=== PATIENT | male | born 1950 | race Caucasian/White ===

== ENCOUNTER 2019-02-27 10:19 | Inpatient (IN) | payer OTHER ==
[~2019-02-27] VITALS: Ht 180.3 cm; Wt 172.4 kg
[~2019-02-27 10:19] MED LIST: ACTOS15 MG PO; ACTOS30 MG PO; CYMBALTA30 MG PO; FUROSEMIDE PO; GLYBURIDE5 MG PO; LISINOPRIL2.5 MG PO; LOPRESSOR25 MG PO; NORCO 5-325 TA1 EACH PO; NOVOLIN N100 UNIT/1 INJ; PREDNISONE20 MG PO; VICODIN PO; XOPENEX0.63 MG/3 IH; [UNRECOGNIZED DRUG - CODE] PO; [UNRECOGNIZED DRUG - OTHER] INH
--- NOTE | 2019-02-27 11:00 | NUR ---
DR. MCCALL AT BEDSIDE AT THIS TIME FOR PT EVAL, NOTED TO HAVE PERIRECTAL ABCESS TO RT MEDIAL ASPECT OF THIGH, SITE IS MALODOROUS, NO PUS NOTED, BLEEDING NOTED TO SITE, TENDER TO TOUCH.
[2019-02-27] MEDS: CEFEPIME 2 GM/NS 0.9% 100 ML 100 ML IV SCH ×2 (11:05→22:13)
[2019-02-27] MEDS ORDERED: SODIUM CHLORIDE 0.9% 1000ML 1,000 ML IV STA (11:05)
[2019-02-27] MEDS ORDERED: VANCOMYCIN 1GM/NS 250 ML 250 ML IV ONE (11:45)
--- NOTE | 2019-02-27 12:35 | Diagnostic Imaging Report ---
EXAMINATION: CHEST SINGLE (PORTABLE) INDICATION: SOB. COMPARISON: Chest radiograph 03/05/2016. FINDINGS: TUBES and LINES: None. LUNGS: Lungs are well inflated. There are mild perihilar and interstitial opacities. Mild patchy bibasilar opacities. PLEURA: No pleural effusion or pneumothorax. HEART AND MEDIASTINUM: The cardiomediastinal silhouette is mildly enlarged, which may be accentuated by portable technique. BONES AND SOFT TISSUES: No acute osseous abnormality. UPPER ABDOMEN: No free air under the diaphragm. IMPRESSION: Mild pulmonary interstitial edema. Patchy opacities at the lung bases may represent atelectasis, alveolar edema, or pneumonia in the appropriate clinical setting. Signed by: Dr. Mandy Patton MD on 02/27/2019 12:31 PM
[2019-02-27 12:40] LABS: BASOPHILS % 0.5 % (0.0-1.0); EOSINOPHILS # (AUTO) 0.4 (0.0-0.4); EOSINOPHILS % 6.6 % (0.0-6.0); LYMPHOCYTES # (AUTO) 0.7 (1.0-3.2); MEAN CORPUSCULAR HEMOGLOBIN 27.3 pg (28-32); MEAN CORPUSCULAR VOLUME 90.9 fL (81-99); MONOCYTES # (AUTO) 0.6 (0.2-0.8); MONOCYTES % 10.2 % (4.4-11.3); NEUTROPHILS # (AUTO) 4.3 (2.1-6.9); NEUTROPHILS % 69.7 % (38.7-80.0); PLATELET COUNT 222 x10e3/uL (140-360); RED BLOOD COUNT 2.97 x10e6/uL (4.3-5.7); RED CELL DISTRIBUTION WIDTH 18.9 % (11.7-14.4)
[2019-02-27 12:44] LABS: HEMOGLOBIN 8.1 g/dL (14.0-18.0)
--- NOTE | 2019-02-27 12:45 | NUR ---
PUREWICK APPLIED TO PT AT THIS TIME FOR URINE COLLECTION.
[2019-02-27 12:53] LABS: INR 1.05; PROTHROMBIN TIME 14.2 seconds (11.9-14.5)
[2019-02-27 12:54] LABS: ALANINE AMINOTRANSFERASE 14 IU/L (0-55); ALBUMIN 3.1 g/dL (3.5-5.0); ALBUMIN/GLOBULIN RATIO 0.7 (0.8-2.0); ALKALINE PHOSPHATASE 127 IU/L (40-150); ANION GAP 13.1 mmol/L (8-16); BLOOD UREA NITROGEN 26 mg/dL (7-26); BUN/CREATININE RATIO 23 (6-25); CALCIUM 9.6 mg/dL (8.4-10.2); CARBON DIOXIDE 34 mmol/L (22-29); CHLORIDE 97 mmol/L (98-107); CREATINE KINASE 72 IU/L (30-200); CREATININE, SERUM 1.13 mg/dL (0.72-1.25); EST GLOMERULAR FILTRATION RATE > 60 ML/MIN (60-); GLUCOSE 75 mg/dL (74-118); PARTIAL THROMBOPLASTIN TIME 38.3 seconds (23.8-35.5); POTASSIUM 4.1 mmol/L (3.5-5.1); SODIUM 140 mmol/L (136-145)
[2019-02-27 12:59] LABS: CLARITY,URINE SL CLOUDY (CLEAR); COLOR,URINE YELLOW (YELLOW); URINE UROBILINOGEN 4 mg/dL (0.2 - 1)
[2019-02-27 13:00] LABS: BILIRUBIN,URINE NEGATIVE (NEGATIVE); KETONES,URINE NEGATIVE (NEGATIVE); LEUKOCYTE ESTERASE ,URINE NEGATIVE (NEGATIVE); NITRITE,URINE NEGATIVE (NEGATIVE); PROTEIN,URINE DIPSTICK NEGATIVE (NEGATIVE)
[2019-02-27 13:03] LABS: B-TYPE NATRIURETIC PEPTIDE2 474.6 pg/mL (0-100)
[2019-02-27 13:12] LABS: EPITHELIAL CELLS,URINE RARE /LPF
[2019-02-27] MEDS ORDERED: SODIUM CHLORIDE 0.9% 250ML 250 ML IV ONE (14:15)
[2019-02-27] MEDS ORDERED: FUROSEMIDE INJ 10 MG/ML 2 ML VIAL IV PRN (14:15)
[2019-02-27] MEDS ORDERED: ONDANSETRON HCL INJ 2MG/ML 2ML 2 MG/ML VIAL IV PRN (14:45)
[2019-02-27] MEDS ORDERED: DEXTROSE 50% SYRINGE 50 ML IV PRN ×2 (14:45→17:15)
--- OUTSIDE RECORDS SUMMARY | 2019-02-27 15:02 | XMS REPORT ---
Author Author [facility] Address Unknown Phone Unavailable Care Team Providers Care External Relations Director Name Role Phone Guillermina MCCALL Unavailable Unavailable Problems This patient has no known problems. Allergies, Adverse Reactions, Alerts This patient has no known allergies or adverse reactions. Medications This patient has no known medications. Results Test Description Test Time Test Comments Text Results Atomic Results Result Comments CHEST SINGLE (PORTABLE) 2019-02-27 12:27:00 [place] [id number] Patient Name: TAWANA ALEJANDRA MR #: [id number] : 1950 Age/Sex: 68/M Req #: [id number] Adm Physician: Ordered by: EMRE MCCALL MD Report #: [id number] Location: ER Room/Bed: Procedure: [id number] DX/CHEST SINGLE (PORTABLE) Exam Date: 02/27/19 Exam Time: 1145 REPORT STATUS: Signed EXAMINATION: CHEST SINGLE (PORTABLE) INDICATI ON: SOB. COMPARISON: Chest radiograph 03/05/2016. FINDINGS: TUBES and LINES: None. LUNGS: Lungs are well inflated. There are mild perihilar and interstitial opacities. Mild patchy bibasilar opacities. PLEURA: No pleural effusion or pneumothorax. HEART AND MEDIASTINUM: The cardiomediastinal silhouette is mildly enlarged, which may be accentuated by portable technique. BONES AND SOFT TISSUES: No acute osseous abnormality. UPPER ABDOMEN: No free air under the diaphragm. IMPRESSION: Mild pulmonary interstitial edema. Patchy opacities at the lung bases may represent atelectasis, alveolar edema, or pneumonia in the appropriate clinical setting. Signed by: Dr. Crystal Neil MD on 02/27/2019 12:31 PM Dictated By: CRYSTAL NEIL MD [id number] Transcribed By: HOLDEN on 02/27/19 1231 COPY TO: EMRE MCCALL MD
[2019-02-27] MEDS: INSULIN LISPRO 100 UNIT/1 ML 3ML VIAL SQ SCH ×2 (16:30→22:14)
[2019-02-27 17:14] VITALS: BP 158/70
[2019-02-27] MEDS ORDERED: MORPHINE SULFATE INJ 4 MG/ML INJ 1ML IV PRN (17:15)
[2019-02-27] MEDS ORDERED: HYDROCODONE/APAP 5MG-325MG TAB PO PRN (17:15)
[2019-02-27] MEDS ORDERED: ACETAMINOPHEN 325 MG TAB PO PRN (17:15)
[2019-02-27 17:27] VITALS: BP 158/70
--- NOTE | 2019-02-27 17:30 | NUR ---
REC'D PT FROM ER WITH NC RUNNING AT 4L/MIN VIA STRETCHER. NO S/S OF DISTRESS NOTED. BED IN LOWEST POSITION, SIDE RAILS UP X2, AND CALL IRBY WITHIN REACH.
[2019-02-27 17:40] VITALS: BP 158/70
[2019-02-27] MEDS ORDERED: METFORMIN HCL500 MG PO (18:09)
[2019-02-27] MEDS ORDERED: FUROSEMIDE40 MG PO (18:09)
[2019-02-27] MEDS ORDERED: GLIPIZIDE5 MG PO (18:11)
[2019-02-27] MEDS ORDERED: NAPROXEN250 MG PO (18:11)
[2019-02-27] MEDS ORDERED: PIOGLITAZONE45 MG PO (18:12)
--- NOTE | 2019-02-27 18:30 | NUR ---
PT ON NC RUNNING AT 4L/MIN. NO S/S OF DISTRESS. CALL IRBY WITHIN REACH, SIDE RAILS UP X2, AND BED IN LOWEST POSITION.
[2019-02-27 19:18] VITALS: BP 140/60
[2019-02-27 19:25] VITALS: BP 140/60
--- NOTE | 2019-02-27 19:25 | NUR ---
PT IS RESTING IN BED. NO RESPIRATORY DISTRESS NOTED. BED IN THE LOWEST POSITION, LOCKED, AND CALL LIGHT WITHIN REACH. WILL CONTINUE TO MONITOR.
[2019-02-27 19:31] LABS: BASOPHILS % 0.5 % (0.0-1.0); EOSINOPHILS # (AUTO) 0.4 (0.0-0.4); HEMATOCRIT 25.5 % (38.2-49.6); HEMOGLOBIN 7.7 g/dL (14.0-18.0); LYMPHOCYTES # (AUTO) 0.7 (1.0-3.2); LYMPHOCYTES % 11.6 % (18.0-39.1); MEAN CORPUSCULAR HEMOGLOBIN 28.1 pg (28-32); MEAN CORPUSCULAR HGB CONC 30.2 g/dL (31-35); MEAN CORPUSCULAR VOLUME 93.1 fL (81-99); MONOCYTES # (AUTO) 0.7 (0.2-0.8); MONOCYTES % 12.2 % (4.4-11.3); NEUTROPHILS % 67.8 % (38.7-80.0); PLATELET COUNT 148 x10e3/uL (140-360); RED BLOOD COUNT 2.74 x10e6/uL (4.3-5.7); RED CELL DISTRIBUTION WIDTH 19.1 % (11.7-14.4)
[2019-02-27 20:10] LABS: CREATINE KINASE MB 1.8 ng/mL (0-5.0)
--- NOTE | 2019-02-27 21:00 | NUR ---
PER PT HE CAN NOT TURN FOR ME TO ASSESS HIS BACK AND BOTTOM DUE TO HIM NOT BEING IN A BIG BOY BED. WILL CONTINUE TO MONITOR.
[2019-02-27] MEDS ORDERED: SODIUM CHLORIDE 0.9% 250ML 250 ML ONE (21:25)
[2019-02-27 21:32] LABS: BASOPHILS % 0.4 % (0.0-1.0); EOSINOPHILS # (AUTO) 0.5 (0.0-0.4); EOSINOPHILS % 7.7 % (0.0-6.0); HEMATOCRIT 25.4 % (38.2-49.6); HEMOGLOBIN 7.6 g/dL (14.0-18.0); LYMPHOCYTES # (AUTO) 0.8 (1.0-3.2); LYMPHOCYTES % 11.6 % (18.0-39.1); MEAN CORPUSCULAR HEMOGLOBIN 27.6 pg (28-32); MEAN CORPUSCULAR HGB CONC 29.9 g/dL (31-35); MEAN CORPUSCULAR VOLUME 92.4 fL (81-99); MONOCYTES # (AUTO) 0.8 (0.2-0.8); MONOCYTES % 12.2 % (4.4-11.3); NEUTROPHILS # (AUTO) 4.6 (2.1-6.9); NEUTROPHILS % 67.2 % (38.7-80.0); PLATELET COUNT 202 x10e3/uL (140-360); RED BLOOD COUNT 2.75 x10e6/uL (4.3-5.7)
--- NOTE | 2019-02-27 21:46 | NUR ---
SPOKE TO DR GEIGER IN REGARD TO PT Hgb. PT Hgb 7.6. PER DR GEIGER DO NOT GIVE BLOOD. HE WILL CHECK TO WHAT PT Hgb IS IN THE MORNING AND GO FROM THEIR. WILL CONTINUE MONITOR.
[2019-02-27] MEDS: VANCOMYCIN 1GM/NS 250 ML 250 ML IV SCH (22:49)
[2019-02-27 23:45] VITALS: BP 135/62
--- NOTE | 2019-02-27 23:49 | History and Physical ---
CHIEF COMPLAINT: Right thigh bleeding. HISTORY OF PRESENT ILLNESS: This is a 68-year-old male morbidly obese with significant lower extremity lymphedema, type 2 diabetes, depression, hypertension, who comes into the ED with complaints of a right thigh sudden-onset bleeding. The patient reports there was initially a small hemorrhagic bullae that suddenly burst last night at home and again had significant amount of bleeding. He decided to put some pressure on that wound on that hemorrhagic bullae, but the bleeding never stopped. He decided to come to [facility] for further evaluation and care. The patient was evaluated by the ER physician, more pressure was applied, but there is still significant amount of bleeding there. General Surgery was consulted and recommended just conservative treatment with pressure at this time. No need for any surgical intervention according to the ER physician. REVIEW OF SYSTEMS: Pertinent positive: Right thigh bleeding. Pertinent negatives: Denies any chest pain, palpitation, nausea, vomiting, diarrhea, dysuria, hematuria, frequency, urgency, lightheadedness, dizziness, abdominal pain, headaches, shortness of breath, cough, congestion, fever, or any other complaints. The rest of 14-point review of systems are reviewed with the patient and are negative. ALLERGIES: . HOME MEDICATIONS: He takes Cymbalta 30 mg daily, Seward 5 one tab every 6 hours as needed for pain, Xopenex 0.63 mg inhaler q.6 hours, lisinopril 2.5 mg p.o. b.i.d., metoprolol tartrate 25 mg p.o. b.i.d., NPH 30 units b.i.d., Actos 15 mg at bedtime, and prednisone 40 mg daily. PAST MEDICAL HISTORY: Morbid obesity, lower extremity lymphedema, type 2 diabetes, and hypertension. PAST SURGICAL HISTORY: Reports none. FAMILY HISTORY: Hypertension and diabetes. SOCIAL HISTORY: No drugs. No alcohol. Does not smoke. Good social support. PHYSICAL EXAMINATION: VITAL SIGNS: Temperature is 98.2, pulse 71, respiratory rate is 20, blood pressure 110/49, pulse ox 100% on 3 L nasal cannula. GENERAL: Not in acute distress. Alert and oriented x3. Cooperative on examination. HEENT: Head is normocephalic and atraumatic. Eyes; pupils are equal, round, and reactive to light bilaterally. Extraocular muscles are intact bilaterally. Throat, no evidence of erythema or exudates in the posterior pharynx. Has poor dentition. NECK: Supple. Good range of motion throughout. No evidence of erythema or exudate in the posterior pharynx. Has poor dentition. PULMONARY: Clear to auscultation bilaterally. No wheezing, rales, or rhonchi. No crackles appreciated. CARDIOVASCULAR: Positive S1, S2. No murmurs, rubs, or gallops appreciated. ABDOMEN: Soft, nondistended, nontender to palpation. Bowel sounds present. MUSCULOSKELETAL: Strength is 5/5 throughout. No evidence of any muscle deficits on examination. No weakness appreciated. The patient's right thigh area has significant amount of bleeding, currently packed by General Surgery. NEUROLOGICAL: Cranial nerves II through XII grossly intact. No evidence of any neurological deficits on exam. SKIN: Intact. Warm to touch. Good cap refill. PSYCHIATRIC: Normal affect and mood. EXTREMITIES: No edema. Good range of motion throughout. LAB FINDINGS: Show white count 6.1, hemoglobin 8.1, hematocrit is 27, and platelets of 222. Coagulation; PT 14, INR 1, PTT 38. Chemistry; sodium 140, potassium 4.1, chloride 97, bicarb 34, anion gap of 13, BUN is 26, creatinine 1.1, lactic acid is 11, which is normal. Calcium 9.6, magnesium 72. Troponin is 0.002, BNP 474, albumin 3.1. Urinalysis was negative. Microbiology, blood, and urine cultures are pending. IMAGING STUDIES: Chest x-ray shows some patchy opacity at the lung bases may represent atelectasis. Mild pulmonary edema. IMPRESSION: 1. Right thigh hemorrhagic bleeding, likely secondary to an underlying cyst that is continuous. 2. Type 2 diabetes. 3. Morbid obesity. 4. Lower extremity lymphedema. 5. Hypertension. 6. Cellulitis. PLAN: At this time, apply pressure as per recommendations by General Surgery. General Surgery was consulted. Hemoglobin is 8.1. We will get another hemoglobin level at 2100 hours and to further evaluate this. Put on insulin sliding scale, Accu-Cheks, A1c. IV cefepime and vancomycin for possible underlying cellulitis. Continue with pain control. Resume same home medications. SCDs for DVT prophylaxis. We will continue same plan of care and monitor closely. General Surgery was consulted. MD JENNYFER Thakkar/ZAHRAA /[id number]
--- NOTE | 2019-02-28 04:19 | NUR ---
PT REFUSE TO HAVE HIS 0400 VITAL TAKEN. PER PT HE DOES NOT WANT TO BE DISTURB. WILL CONTINUE TO MONITOR.
[2019-02-28 04:30] VITALS: BP 138/62
--- NOTE | 2019-02-28 07:28 | NUR ---
PATIENT SITTING UP IN BED TALKING ON THE PHONE, NO DISTRESS NOTED. O2 IN PLACE VIA N/C. LEGS RED, SWELLING, AND SCALY WITH SOME LEAKING WOUNDS; BRUISES AND SCRATCHES TO BOTH ARMS; WOUND TO RIGHT BUTTOCK COVERED WITH DRESSING, REDNESS TO PERINEAL AREA. BED IN LOWER POSITION, CALL LIGHT AT REACH.
[2019-02-28] MEDS: INSULIN LISPRO 100 UNIT/1 ML 3ML VIAL SQ SCH ×4 (07:30→21:00)
[2019-02-28 07:31] LABS: BASOPHILS % 0.3 % (0.0-1.0); EOSINOPHILS # (AUTO) 0.5 (0.0-0.4); EOSINOPHILS % 7.3 % (0.0-6.0); HEMOGLOBIN 7.8 g/dL (14.0-18.0); LYMPHOCYTES # (AUTO) 0.6 (1.0-3.2); LYMPHOCYTES % 8.8 % (18.0-39.1); MEAN CORPUSCULAR VOLUME 93.2 fL (81-99); MONOCYTES # (AUTO) 0.7 (0.2-0.8); MONOCYTES % 11.4 % (4.4-11.3); NEUTROPHILS # (AUTO) 4.5 (2.1-6.9); NEUTROPHILS % 71.4 % (38.7-80.0); PLATELET COUNT 192 x10e3/uL (140-360); RED BLOOD COUNT 2.79 x10e6/uL (4.3-5.7); RED CELL DISTRIBUTION WIDTH 18.8 % (11.7-14.4)
[2019-02-28 07:35] VITALS: BP 136/63
[2019-02-28 07:49] VITALS: BP 136/63
[2019-02-28 07:58] LABS: ALANINE AMINOTRANSFERASE 14 IU/L (0-55); ALBUMIN 2.8 g/dL (3.5-5.0); ALBUMIN/GLOBULIN RATIO 0.7 (0.8-2.0); ALKALINE PHOSPHATASE 116 IU/L (40-150); ANION GAP 12.6 mmol/L (8-16); CALCIUM 8.7 mg/dL (8.4-10.2); CARBON DIOXIDE 32 mmol/L (22-29); CHLORIDE 100 mmol/L (98-107); CREATININE, SERUM 1.05 mg/dL (0.72-1.25); EST GLOMERULAR FILTRATION RATE > 60 ML/MIN (60-); GLUCOSE 129 mg/dL (74-118); POTASSIUM 4.6 mmol/L (3.5-5.1); SODIUM 140 mmol/L (136-145)
[2019-02-28 08:05] LABS: CREATINE KINASE MB 1.9 ng/mL (0-5.0)
[2019-02-28 08:15] LABS: BLOOD UREA NITROGEN 22 mg/dL (7-26); BUN/CREATININE RATIO 22 (6-25)
[2019-02-28] MEDS: METOPROLOL TARTRATE 25 MG TAB PO SCH ×2 (09:00→17:34)
[2019-02-28] MEDS: CEFEPIME 2 GM/NS 0.9% 100 ML 100 ML IV SCH ×2 (09:27→21:00)
[2019-02-28] MEDS: VANCOMYCIN 1GM/NS 250 ML 250 ML IV SCH ×2 (11:02→23:00)
[2019-02-28 11:39] VITALS: BP 134/58
--- NOTE | 2019-02-28 11:44 | NUR ---
Nutrition Screen Note RD Recommendation for Physician: Continue diet as ordered Plan of Care: RD following, monitoring for adequacy and tolerance Nutrition reason for involvement: Nutrition Risk Trigger - MST Primary Diagnose(s): Anemia, cellulitis, varicose vein of leg Ht:71 in Wt:411.44lbs BMI:57.4 kg/m2 IBW:172lbs RD Assessment:(02/28/2019) Initial encounter with patient. Pt has done well losing wt with lifestyle changes and exercise. Pt states that he has cut fat, sugar and portion sizes down. Pt denies any difficulty chewing or swallowing. Pt denies N,V,D. Current Diet: 1800ADA Malnutrition Evaluation 02/28/2019 The patient does not meet criteria for a specified degree of malnutrition at this time. Will re-evaluate at follow-up as appropriate. Diet Education Needs Assessment: Diet education not indicated. Pt is familiar with a low sodium diabetes diet Diet Adequacy: Meeting calorie needs, Meeting protein needs, Meeting fluid needs Tolerance: Tolerating PO Nutrition Care Level: peri Caldwell RD, LD, CNSC
--- NOTE | 2019-02-28 12:20 | NUR ---
PATIENT REPOSITIONED IN BED. EATING LUNCH AT THIS TIME, CALL LIGHT AT REACH.
[2019-02-28 15:10] VITALS: BP 134/60
[2019-02-28] MEDS ORDERED: DEXTROSE 50% SYRINGE 50 ML IV PRN (15:30)
--- NOTE | 2019-02-28 16:05 | NUR ---
MD IN TO SEE PATIENT, NEW ORDERS RECEIVED.
--- NOTE | 2019-02-28 17:25 | NUR ---
Met with patient and gave him list of SNF's in network w/ [facility]. He was very upset that there are no facilities located in [place]. He stated he wants to go home with home health. CM explained he will need to discuss that with his physician. He also stated if he goes to a SNF, he wants to go to [facility] as he has been there twice and likes it. CM explained he would have to pay, because they are not in network. He stated he will call [facility] and discuss with them. He does not anticipate given a final answer to any dc plan until Saturday. KODAK updated his nurse Hay RN.
--- NOTE | 2019-02-28 19:18 | Progress Note ---
DATE: 02/28/2019 Medicine Progress Note SUBJECTIVE: The patient is doing well with no other issues. According to the nurse, there is no bleeding in the right thigh area, where he is bleeding from yesterday. He has improved much tremendously. He has no any other issues. He is complaining that his sugars are elevated, which showed no blood and has been restarted. PHYSICAL EXAMINATION: VITAL SIGNS: Temperature 97.1, pulse 78, respiratory rate 19, blood pressure 134/60, and pulse ox 98% on nasal cannula. GENERAL: Not in acute distress. Alert and oriented x3. Cooperative on examination. HEENT: Head is normocephalic and atraumatic. Eyes; pupils are equal, round, and reactive to light bilaterally. Extraocular movements are intact bilaterally. Throat, no evidence of erythema or exudates in the posterior pharynx. Has poor dentition. NECK: Supple. Good range of motion. PULMONARY: Clear to auscultation bilaterally. No wheezing, no rales, no rhonchi, and no crackles appreciated. CARDIOVASCULAR: Positive S1, S2. No murmurs, rubs, or gallops appreciated. ABDOMEN: Soft, nondistended, and nontender to palpation. Bowel sounds present. MUSCULOSKELETAL: Strength is 5/5 throughout. No evidence of any muscle deficits on examination. No weakness appreciated. NEUROLOGIC: Cranial nerves II through XII grossly intact. No evidence of any neurological exam. SKIN: Intact. Warm to touch. Good cap refill. PSYCHIATRIC: Normal affect and mood. EXTREMITIES: No edema. Good range of motion throughout. LABORATORY DATA: Showed white count 6.3, hemoglobin 7.8, hematocrit is 26, and platelets 192. PT 14, INR 1, and PTT 38. Chemistry, sodium 140, potassium 4.6, chloride 100, bicarb 32, anion gap of 12, BUN is 22, creatinine is 1, glucose is 129, calcium is 8.7. LFTs were normal. Albumin was 2.8. Urinalysis negative. Microbiology: Blood culture is negative. Urine culture is negative. IMPRESSION: 1. Right thigh hemorrhagic bleeding, which is secondary to a cyst, much improved. 2. Type 2 diabetes. 3. Morbid obesity. 4. Lower extremity lymphedema. 5. Hypertension. 6. Cellulitis. PLAN: At this time, we will continue applying pressure to the right thigh area. His bleeding seems to have stopped. His hemoglobin is 7.8 and stable. Get a.m. labs. Restart his Novolin N twice daily and increase sliding scale to moderate before meals and at bedtime. Pain is well controlled. We will get the Wound Care on Saturday and PT and OT evaluation as well. Plan to discharge to nursing home facility. MD JENNYFER Thakkar/ZAHRAA /[id number]
[2019-02-28 20:16] VITALS: BP 134/62
[2019-02-28] MEDS: NPH, HUMAN INSULIN ISOPHANE 100 UNIT/1 ML 3ML VIAL SQ SCH (21:00)
[2019-03-01] VITALS (9 sets, daily range): BP systolic 133–170; BP diastolic 63–68
--- NOTE | 2019-03-01 05:59 | NUR ---
Patient laying in bed with HOB slightly elevated. No sob noted. No acute distress noted. Patient in stable condition, will continue to monitor.
[2019-03-01 06:27] LABS: BASOPHILS % 0.3 % (0.0-1.0); EOSINOPHILS # (AUTO) 0.5 (0.0-0.4); EOSINOPHILS % 8.3 % (0.0-6.0); HEMATOCRIT 26.3 % (38.2-49.6); HEMOGLOBIN 7.7 g/dL (14.0-18.0); LYMPHOCYTES # (AUTO) 0.7 (1.0-3.2); LYMPHOCYTES % 11.7 % (18.0-39.1); MEAN CORPUSCULAR HEMOGLOBIN 27.7 pg (28-32); MEAN CORPUSCULAR HGB CONC 29.3 g/dL (31-35); MEAN CORPUSCULAR VOLUME 94.6 fL (81-99); MONOCYTES # (AUTO) 0.8 (0.2-0.8); MONOCYTES % 11.9 % (4.4-11.3); NEUTROPHILS # (AUTO) 4.2 (2.1-6.9); NEUTROPHILS % 66.4 % (38.7-80.0); PLATELET COUNT 223 x10e3/uL (140-360); RED BLOOD COUNT 2.78 x10e6/uL (4.3-5.7); RED CELL DISTRIBUTION WIDTH 18.6 % (11.7-14.4)
[2019-03-01 06:47] LABS: BLOOD UREA NITROGEN 22 mg/dL (7-26); BUN/CREATININE RATIO 22 (6-25); CALCIUM 8.8 mg/dL (8.4-10.2); CARBON DIOXIDE 34 mmol/L (22-29); CHLORIDE 100 mmol/L (98-107); CREATININE, SERUM 1.01 mg/dL (0.72-1.25); EST GLOMERULAR FILTRATION RATE > 60 ML/MIN (60-); GLUCOSE 99 mg/dL (74-118); SODIUM 139 mmol/L (136-145)
[2019-03-01] MEDS: INSULIN LISPRO 100 UNIT/1 ML 3ML VIAL SQ SCH ×4 (07:30→21:00)
--- NOTE | 2019-03-01 08:00 | NUR ---
PATIENT IS AWAKE, ALERT, AND IN STABLE CONDITION WITH NO S/S OF RESPIRATORY DISTRESS. PATIENT DENIES PAIN. PATIENT'S BILATERAL LOWER EXTREMITIES ARE RED AND SCALY- PATIENT HAS SMALL WEEPING NOTED ON BOTH LATERAL SIDES OF THE LOWER EXTREMITY. AIR PUMP APPLIED TO THE BED. CALL LIGHT IS WITHIN REACH, PATIENT INSTRUCTED TO CALL FOR ASSISTANCE NEEDED.
[2019-03-01] MEDS: METOPROLOL TARTRATE 25 MG TAB PO SCH ×2 (08:41→17:00)
[2019-03-01] MEDS: NPH, HUMAN INSULIN ISOPHANE 100 UNIT/1 ML 3ML VIAL SQ SCH ×2 (08:41→21:00)
[2019-03-01] MEDS: CEFEPIME 2 GM/NS 0.9% 100 ML 100 ML IV SCH ×2 (08:44→21:00)
[2019-03-01] MEDS: NYSTATIN 15 GM POWDER UD BTL TOP SCH (10:28)
--- NOTE | 2019-03-01 10:49 | NUR ---
PATIENT WAS WILLING TO TURN TO HIS SIDE FOR RN AND PCT TO APPLY CLEAN PAPER PADS UNDER HIS BUTTOCK AND LOWER EXTREMITIES. ABSCESS AREA NOTED BELOW PATIENT'S LEFT LOWER BUTTOCK AREA- NO DRAINAGE NOTED. PUREWICK REAPPLIED TO PATIENT. PATIENT REFUSED TO REMAIN ON HIS SIDE AND REFUSES TO HAVE Q2T EVEN AFTER RN EDUCATED ON IMPORTANCE OF Q2 TURNS.
--- NOTE | 2019-03-01 11:44 | NUR ---
SPOKE WITH DR. GEIGER REGARDING CRITICAL VANCO TROUGH OF 13.4- ORDER TO GIVE VANCOMYCIN
[2019-03-01] MEDS: VANCOMYCIN 1GM/NS 250 ML 250 ML IV SCH ×2 (11:55→23:00)
[2019-03-01 13:36] LABS: LYMPHOCYTES % (MANUAL) 13 % (19-48); MONOCYTES % (MANUAL) 11 % (3.4-9.0)
[2019-03-01 13:37] LABS: EOSINOPHILS % (MANUAL) 6 % (0-7); NEUTROPHILS % (MANUAL) 70 % (40-74); PLATELET ESTIMATE ADEQUATE
[2019-03-01 13:38] LABS: PLATELET MORPHOLOGY COMMENT NORMAL; RBC MORPHOLOGY COMMENT NORMAL
[2019-03-01] MEDS: DIPHENHYDRAMINE HCL 25 MG CAP PO PRN (15:16)
--- NOTE | 2019-03-01 19:15 | NUR ---
PATIENT IS IN STABLE CONDITION WITH NO S/S OF RESPIRATORY DISTRESS- NO PAIN VOICED. PUREWICK APPLIED. CALL LIGHT IS WITHIN REACH AND PATIENT IS AWARE TO CALL FOR ASSISTANCE NEEDED. BEDSIDE REPORT GIVEN TO ONCOMING NURSE.
--- NOTE | 2019-03-01 19:27 | Progress Note ---
DATE: 03/01/2019 Medicine Progress Note SUBJECTIVE: The patient is doing well today with only complaint that he has just itching, still waiting on the bariatric bed. Benadryl has been started for his underlying itching. PHYSICAL EXAMINATION: VITAL SIGNS: Temperature is 97.3, pulse 76, respiratory rate 19, blood pressure 143/65, pulse ox 98% on 3 L nasal cannula. GENERAL: Not in acute distress. Alert and oriented x3. Cooperative on examination. HEENT: Head is normocephalic and atraumatic. Eyes; pupils are equal, round, and reactive to light bilaterally. Extraocular movements are intact bilaterally. Throat, no evidence of erythema or exudates in the posterior pharynx. Has poor dentition. NECK: Supple. Good range of motion. PULMONARY: Clear to auscultation bilaterally. No wheezing, no rales, no rhonchi, and no crackles appreciated. CARDIOVASCULAR: Positive S1, S2. No murmurs, rubs, or gallops appreciated. ABDOMEN: Soft, nondistended, and nontender to palpation. Bowel sounds present. MUSCULOSKELETAL: Strength is 5/5 throughout. No evidence of any muscle deficits on examination. No weakness appreciated. NEUROLOGIC: Cranial nerves II through XII grossly intact. No evidence of any neurological deficits on exam. SKIN: Intact. Warm to touch. Good cap refill. PSYCHIATRIC: Normal affect and mood. EXTREMITIES: No edema. Good range of motion throughout. LABORATORY DATA: Lab findings show white count of 6.3, hemoglobin 7.7, hematocrit 26, platelets of 223. Coagulation PT 14, INR 1, PTT 38. Chemistry, sodium 139, potassium 5, chloride 100, bicarb 31, anion gap of 10, BUN is 22, creatinine is 1, glucose 99, calcium is 8.8. MICROBIOLOGY: Blood cultures negative. Urine cultures are negative. IMPRESSION: 1. Right thigh hemorrhagic bleeding secondary to a cyst, now improved with stable hemoglobin. 2. Type 2 diabetes. 3. Morbid obesity. 4. Lower extremity lymphedema. 5. Hypertension. 6. Cellulitis. PLAN: At this time, continue applying pressure to the right thigh area for underlying bleeding. He has no bleeding over the last several days. Hemoglobin is still at 7.7. Get a.m. labs. I really restarted his Novolin N and sliding scale as of yesterday. Continue with Wound Care which we will continue on Saturday. PT, OT eval. The patient is requesting shelter facility for which the order has been placed. MD JENNYFER Thakkar/ZAHRAA /[id number]
--- NOTE | 2019-03-01 19:29 | NUR ---
Received change of shift report from AM nurse. Walking rounds completed.
--- NOTE | 2019-03-01 21:18 | NUR ---
Patient received a bath. Applied lotion to back due to patient c/o itching. Patient has benadryl will f/u.
--- NOTE | 2019-03-01 21:22 | NUR ---
BS 130, pt received insulin as prescribed to left lower abdomin. Patient tolerated well.
--- NOTE | 2019-03-01 23:41 | NUR ---
Patient resting quitly at this time. Continue monitor.
[2019-03-02] VITALS (7 sets, daily range): BP systolic 145–162; BP diastolic 65–89
[2019-03-02 05:58] LABS: HEMATOCRIT 26.5 % (38.2-49.6); HEMOGLOBIN 7.7 g/dL (14.0-18.0); MEAN CORPUSCULAR HEMOGLOBIN 27.7 pg (28-32); MEAN CORPUSCULAR HGB CONC 29.1 g/dL (31-35); MEAN CORPUSCULAR VOLUME 95.3 fL (81-99); PLATELET COUNT 225 x10e3/uL (140-360); RED BLOOD COUNT 2.78 x10e6/uL (4.3-5.7); RED CELL DISTRIBUTION WIDTH 18.6 % (11.7-14.4)
[2019-03-02 06:27] LABS: ANION GAP 9.8 mmol/L (8-16); BLOOD UREA NITROGEN 22 mg/dL (7-26); BUN/CREATININE RATIO 22 (6-25); CALCIUM 8.7 mg/dL (8.4-10.2); CARBON DIOXIDE 34 mmol/L (22-29); CHLORIDE 98 mmol/L (98-107); CREATININE, SERUM 0.99 mg/dL (0.72-1.25); EST GLOMERULAR FILTRATION RATE > 60 ML/MIN (60-); GLUCOSE 114 mg/dL (74-118); POTASSIUM 4.8 mmol/L (3.5-5.1); SODIUM 137 mmol/L (136-145)
[2019-03-02] MEDS: INSULIN LISPRO 100 UNIT/1 ML 3ML VIAL SQ SCH ×4 (07:30→21:00)
--- NOTE | 2019-03-02 07:45 | NUR ---
PT UP IN BED C/O BED,EXPLAINED TO PT BED WOULD BE DELIVERED TODAY.
[2019-03-02] MEDS: CEFEPIME 2 GM/NS 0.9% 100 ML 100 ML IV SCH ×2 (09:00→21:50)
[2019-03-02] MEDS: NPH, HUMAN INSULIN ISOPHANE 100 UNIT/1 ML 3ML VIAL SQ SCH ×2 (09:00→21:56)
[2019-03-02] MEDS: METOPROLOL TARTRATE 25 MG TAB PO SCH ×2 (09:00→16:58)
[2019-03-02] MEDS ORDERED: SODIUM CHLORIDE 0.9% 250ML 250 ML ONE (09:01)
[2019-03-02] MEDS: NYSTATIN 15 GM POWDER UD BTL TOP SCH (10:00)
--- NOTE | 2019-03-02 10:19 | NUR ---
CM SPOKE WITH PT THIS AM RE SNF CHOICE HE STATES HIS SON IS GOING TO LOOK AT [facility] THIS EVENING WHEN HE GETS OFF OF WORK GAVE PT MY NAME AND NUMBER AND ASKED FOR HIS SON SARAVANAN TO CALL ME AFTER HE TOURS [facility] PT AGREES P.T. ORDER ENTERED; WILL NEED 2 DAYS OF P.T. NOTES FOR [place] [facility] SN[facility] PT ALSO ASKING FOR BIG BOY BED AND HOME NEBULIZERS NOTIFIED PT'S NURSE BED IS BEING ORDERED BY HOUSE [facility]P AND NURSE IS CALLING FOR NEB ORDERS CM TO FOLLOW
[2019-03-02] MEDS ORDERED: ALBUTERAL IH (10:32)
--- NOTE | 2019-03-02 11:35 | NUR ---
WOUND CARE CONSULTATION: THIS IS A 68 YEAR OLD, MALE PATIENT ADMITTED TO [facility] FOR ANEMIA, CELLULITIS, AND VARICOSE VEIN OF LEG. PATIENT HAS A HISTORY OF HTN, MORBID OBESITY, DM TYPE 2 AND LYMPHEDEMA. HEAD TO TOE SKIN ASSESSMENT PERFORMED. PATIENT HAS AN AREA OF 100% BLANCHABLE REDNESS NOTED TO THE SACRAL CREASE EXTENDING TO THE LEFT BUTTOCKS MEASURING [id number]. PATIENT HAS A RIGHT THIGH WOUND FROM AN UNDERLYING CYST; BLEEDING HAS STOPPED SINCE ADMISSION; WOUND MEASURES 2X1.5X0.1CM. PRESSURE DRESSING TO THIS WOUND HAS BEEN REMOVED SINCE BLEEDING HAS CEASED. PATIENT HAS MODERATE HYDROCELE; WITH SKIN INTACT UPON ASSESSMENT. PATIENT'S BLE HAVE MULTIPLE STABLE ESCHARS NOTED AND ONE OPEN BLISTER NOTED TO THE LATERAL ASPECT OF THE LEFT UPPER LEG WITH WEEPING OF SEROUS FLUID NOTED, THAT MEASURED 7.5X6X0.1CM. PATIENT HAS AN AREA TO THE RIGHT ABDOMINAL FOLD WITH DENUDED SKIN MEASURING 3.5X1X0.1CM. LABS: WBC7.07 [id number] BLOOD CULTURES=PENDING URINE CULTURES= NEGATIVE MEDICATIONS: CEFEPIME VANCOMYCIN RECOMMENDATIONS: -PATIENT HAS A BARIATRIC ALTERNATING PRESSURE RELIEF MATTRESS ORDERED AND TO BE DELIVERED TODAY, PER [employer] WIRE TAPER. -NURSING TO APPLY BILATERAL HEEL PROTECTORS. -APPLY PILLOW SUSPENSION TO BLE WHILE IN BED. -TURN EVERY 2 HOURS AND PRN. -CONTINUE NYSTATIN CREAM TO ABDOMINAL FOLD DENUDED AREA DAILY, PREVIOUSLY ORDERED. -CLEAN SACRAL AREA OF BLANCHABLE REDNESS WITH NORMAL SALINE, PAT DRY, APPLY VENELEX OINTMENT THEN ALLEVYN FOAM DRESSING; CHANGE DAILY AND PRN. -CLEAN RIGHT UPPER THIGH WOUND WITH NORMAL SALINE, PAT DRY, APPLY MAXORB AG, THEN APPLY ALLEVYN FOAM DRESSING; CHANGE DAILY AND PRN. -CLEAN BLE WITH SOAP AND WATER, PAT DRY, APPLY VENELEX OINTMENT TO BLE, PROTECT OPEN BLISTER TO LEFT LATERAL UPPER LEG WITH ADAPTIC, WRAP BLE WITH KERLIX; CHANGE DAILY AND PRN. THANK YOU FOR THIS WOUND CARE CONSULT. Addendum: 03/02/19 at 1159 by Radha Jules RN Amended: Links added.
[2019-03-02] MEDS: VANCOMYCIN 1GM/NS 250 ML 250 ML IV SCH (12:01)
--- NOTE | 2019-03-02 12:45 | NUR ---
PHYSICAL THERAPY HERE AMBULATED PT IN ROOM WITH WALKER,SOB NOTED ON EXERTION,SPECIALTY BED DELIVERED,ASSITED TO BED
--- NOTE | 2019-03-02 17:10 | NUR ---
DR GEIGER HERE PT REQUESTING DE LEON DR GEIGER EXPLAINED TO PT NOT NECESSARY TO HAVE DE LEON,.DENIES PAIN ,O2 2L NC IN PLACE.
--- NOTE | 2019-03-02 19:23 | Progress Note ---
DATE: 03/02/2019 Medicine Progress Note SUBJECTIVE: The patient is doing well today with no complaints. His son is going to evaluate some long-term facility to make a final decision in which location he would like to go to. He wants a Potter catheter, which I discussed with him that this is not advisable for increased risk of infection. PHYSICAL EXAMINATION: VITAL SIGNS: Temperature is 97.8, pulse 73, respiratory rate is 22, blood pressure 151/73, pulse ox 93% on 3 L nasal cannula. GENERAL: Not in acute distress. Alert and oriented x3. Cooperative on examination. HEENT: Head is normocephalic and atraumatic. Eyes; pupils are equal, round, and reactive to light bilaterally. Extraocular movements are intact bilaterally. Throat, no evidence of erythema or exudates in the posterior pharynx. Has poor dentition. NECK: Supple. Good range of motion. PULMONARY: Clear to auscultation bilaterally. No wheezing, no rales, no rhonchi, and no crackles appreciated. CARDIOVASCULAR: Positive S1, S2. No murmurs, rubs, or gallops appreciated. ABDOMEN: Soft, nondistended, and nontender to palpation. Bowel sounds present. MUSCULOSKELETAL: Strength is 5/5 throughout. No evidence of any muscle deficits on examination. No weakness appreciated. NEUROLOGIC: Cranial nerves II through XII grossly intact. No evidence of any neurological deficits on exam. SKIN: Intact. Warm to touch. Good cap refill. PSYCHIATRIC: Normal affect and mood. EXTREMITIES: No edema. Good range of motion throughout. LABORATORY DATA: Lab findings show white count of 7, hemoglobin 7.7, hematocrit 26, platelets of 225. Coagulation noted. Chemistry; sodium 137, potassium 4.8, chloride 98, bicarb 34, anion gap of 9.8, BUN is 23, creatinine is 0.99, glucose 114. IMPRESSION: 1. Right thigh hemorrhagic cyst that was bleeding now improved, now stable, hemoglobin 7.7. 2. Type 2 diabetes. 3. Morbid obesity. 4. Lower extremity lymphedema with local wound care. 5. Hypertension. PLAN: At this time, his hemoglobin has maintained stable. No further workup is needed from that standpoint. General Surgery was consulted. Get a.m. labs. Local wound care was applied today. No further workup needed by the wound care team. PT and OT to work with the patient today. Pending long-term facility. MD JENNYFER Thakkar/ZAHRAA /[id number]
[2019-03-02] MEDS: ALBUTEROL SULFATE HFA 8GM INHALATION AEROSOL INH SCH (19:35)
--- NOTE | 2019-03-02 19:39 | NUR ---
RECEIVED PT IN BED AOX3 RESPIRATIONS ARE EVEN AND UNLABORED .PT DENIES PAIN .PT C/O FRANNIE PT WANTS F/C .EXPLAINED THE PT WHY HE CANNOT HAVE THE F/C NOW . RT BUTTOCK WITH LESION.CALL LIGHT WITH IN REACH .CONTINUE TO MONITOR
[2019-03-03] VITALS (8 sets, daily range): BP systolic 129–154; BP diastolic 58–66
[2019-03-03] MEDS: VANCOMYCIN 1GM/NS 250 ML 250 ML IV SCH ×3 (00:14→23:26)
--- NOTE | 2019-03-03 06:31 | NUR ---
PT RESTING AND DENIES PAIN .NO ACUTE DISRTESS NOTED .CALL LIGHT WITH IN REACH ,CONTINUE TO MONITOR
[2019-03-03] MEDS: ALBUTEROL SULFATE HFA 8GM INHALATION AEROSOL INH SCH ×2 (07:00→19:00)
--- NOTE | 2019-03-03 07:16 | NUR ---
BEDSIDE REPORT GIVEN TO THE ONCOMING NURSE
[2019-03-03] MEDS: INSULIN LISPRO 100 UNIT/1 ML 3ML VIAL SQ SCH ×4 (07:30→19:18)
--- NOTE | 2019-03-03 07:30 | NUR ---
pt in bed sleeping no s/s discomfort,o2 [address]l nc in place
[2019-03-03] MEDS: METOPROLOL TARTRATE 25 MG TAB PO SCH ×2 (08:54→17:00)
[2019-03-03] MEDS: CEFEPIME 2 GM/NS 0.9% 100 ML 100 ML IV SCH ×2 (08:56→21:14)
[2019-03-03] MEDS ORDERED: ALBUTERAL IH SCH (09:00)
[2019-03-03] MEDS: NPH, HUMAN INSULIN ISOPHANE 100 UNIT/1 ML 3ML VIAL SQ SCH ×2 (09:00→21:13)
--- NOTE | 2019-03-03 10:58 | NUR ---
ASSESSMENT: Spiritual concern Pt lonely and in need of conversation. Pt states he was "in a dark place" and "depressed" a few days ago following an encounter with a staff member but states he "feels better now." Pt identifies as Jewish. Intervention: Provided unhurried empathic listening. Facilitated life review and storytelling. Provided prayer. Outcome: Pt expressed appreciation for visit. No need to follow at this time. MYNOR CADE Work Checker Spiritual Care Department O: [phone] Pager: [phone] ([phone] number calling from)
[2019-03-03] MEDS: BALSAM PERU/CASTOR OIL 5 GM OINT...G. TP SCH (11:47)
[2019-03-03] MEDS: NYSTATIN 15 GM POWDER UD BTL TOP SCH (11:47)
--- NOTE | 2019-03-03 13:57 | NUR ---
SPOKE WITH PT WHOM STATES HE WONT SIGN UNTIL HIS SON GETS A CHANCE TO GO LOOK AT BUILDING.
--- NOTE | 2019-03-03 14:10 | NUR ---
SPOKE WITH SON SARAVANAN ALEJADNRA [phone] WHOM STATES HE IS GOING TODAY AT [address] WHEN HE GETS OFF OF WORK, HE WILL CALL AND LEAVE VOICEMAIL FOR ME TO BE ABLE TO START SNF IN MORNING
[2019-03-03] MEDS ORDERED: SODIUM CHLORIDE 0.9% 250ML 250 ML ONE (14:15)
[2019-03-03] MEDS: ALBUTEROL/IPRATROPIUM 3 ML NEB NEB PRN (16:30)
[2019-03-03] MEDS ORDERED: ONDANSETRON HCL 4 MG ORAL DISINTEGRATING TAB PO PRN (17:30)
[2019-03-03] MEDS: BUMETANIDE 1 MG TAB PO SCH (18:37)
--- NOTE | 2019-03-03 18:38 | NUR ---
pt up in bed no dsitress ntoed,deies pain ,o2 [address]l n[address] in place.
--- NOTE | 2019-03-03 19:40 | NUR ---
Received patient in report. Patient is sitting up in bed, semi fowlers. A&Ox3. Lung sounds clear. Bowel sounds active. Allevyn patch to sacrum in place. No other redness noted. No pain reported. No S&S of distress noted at this time. Bed locked in lowest position, side rails upx2, call light in reach.
--- NOTE | 2019-03-03 20:15 | NUR ---
Patient refusing q2 turns, stating he cant be in any other position or he has difficulty breathing. Alternating pressure mattress active and working.
--- NOTE | 2019-03-03 20:27 | Progress Note ---
DATE: 03/03/2019 Medicine Progress Note SUBJECTIVE: The patient is doing well today with no other complaints. Awaiting for senior living facility, choice by the family. OBJECTIVE: VITAL SIGNS: Temperature 98.8, pulse 70, respiratory rate 20, blood pressure 140/66, and pulse ox 96% on 2 L nasal cannula. GENERAL: Not in acute distress. Alert and oriented x3. Cooperative on examination. HEENT: Head is normocephalic and atraumatic. Eyes; pupils are equal, round, and reactive to light bilaterally. Extraocular movements are intact bilaterally. Throat, no evidence of erythema or exudates in the posterior pharynx. Has poor dentition. NECK: Supple. Good range of motion. PULMONARY: Clear to auscultation bilaterally. No wheezing, no rales, no rhonchi, no crackles appreciated. CARDIOVASCULAR: Positive S1, S2. No murmurs, rubs, or gallops appreciated. ABDOMEN: Soft, nondistended, and nontender to palpation. Bowel sounds present. MUSCULOSKELETAL: Strength is 5/5 throughout. No evidence of any muscle deficits on examination. No weakness appreciated. NEUROLOGICAL: Cranial nerves II through XII grossly intact. No evidence of any neurological deficits on exam. SKIN: Intact. Warm to touch. Good cap refill. PSYCHIATRIC: Normal affect and mood. EXTREMITIES: No edema. Good range of motion throughout. LAB FINDINGS: Showed white count is 7.0, hemoglobin 7.7, hematocrit 26.5, and platelets 225. Chemistries are stable. MICROBIOLOGY: None. IMPRESSION: 1. Right thigh hemorrhagic cyst with bleeding, now improved. Hemoglobin is stable. 2. Type 2 diabetes. 3. Morbid obesity. 4. Lower extremity lymphedema with lower extremity wounds with local wound care. 5. Hypertension. PLAN: At this time, his hemoglobin is stable. We are still pending senior living facility placement. He is getting daily wound care. Working with PT/OT as well daily. MD JENNYFER Thakkar/NOMANL /[id number]
[2019-03-03] MEDS: DIPHENHYDRAMINE HCL 25 MG CAP PO PRN (23:30)
[2019-03-04] VITALS (8 sets, daily range): BP systolic 116–140; BP diastolic 54–63
--- NOTE | 2019-03-04 00:25 | NUR ---
Patient complained of severe itchiness when vancomycin administered. Vanc stopped. Administered benadryl. Changed IV dressing, cleansed skin, reapplied dressing. Efforts did not resolve itching. Informed MD Oviedo, orders received to d/c vancomycin.
[2019-03-04 06:42] LABS: BASOPHILS % 0.6 % (0.0-1.0); EOSINOPHILS # (AUTO) 0.6 (0.0-0.4); EOSINOPHILS % 9.2 % (0.0-6.0); HEMATOCRIT 24.4 % (38.2-49.6); HEMOGLOBIN 7.2 g/dL (14.0-18.0); LYMPHOCYTES # (AUTO) 0.8 (1.0-3.2); LYMPHOCYTES % 11.6 % (18.0-39.1); MEAN CORPUSCULAR HGB CONC 29.5 g/dL (31-35); MEAN CORPUSCULAR VOLUME 94.9 fL (81-99); MONOCYTES # (AUTO) 0.9 (0.2-0.8); MONOCYTES % 13.1 % (4.4-11.3); NEUTROPHILS # (AUTO) 4.2 (2.1-6.9); PLATELET COUNT 209 x10e3/uL (140-360); RED BLOOD COUNT 2.57 x10e6/uL (4.3-5.7); RED CELL DISTRIBUTION WIDTH 19.1 % (11.7-14.4)
[2019-03-04] MEDS: ALBUTEROL/IPRATROPIUM 3 ML NEB NEB PRN (06:55)
[2019-03-04] MEDS: ALBUTEROL SULFATE HFA 8GM INHALATION AEROSOL INH SCH ×2 (06:55→19:00)
[2019-03-04 06:57] LABS: ANION GAP 9.7 mmol/L (8-16); BLOOD UREA NITROGEN 22 mg/dL (7-26); BUN/CREATININE RATIO 21 (6-25); CALCIUM 8.8 mg/dL (8.4-10.2); CARBON DIOXIDE 35 mmol/L (22-29); CHLORIDE 98 mmol/L (98-107); CREATININE, SERUM 1.06 mg/dL (0.72-1.25); EST GLOMERULAR FILTRATION RATE > 60 ML/MIN (60-); GLUCOSE 162 mg/dL (74-118); POTASSIUM 4.7 mmol/L (3.5-5.1); SODIUM 138 mmol/L (136-145)
--- NOTE | 2019-03-04 07:19 | NUR ---
PATIENT IN BED WITH HEAD OF BED ELEVATED RECEIVING NEB TREATMENT, NO DISTRESS NOTED. BRUISE TO LEFT SHOULDER, REDNESS AND SWELLING TO LOWER EXTREMITIES WRAPPED WITH KERLIX; PATIENT REFUSED KERLIX TO BE REMOVED. ON SPECIALTY BED WITH CALL LIGHT AT REACH.
[2019-03-04] MEDS: INSULIN LISPRO 100 UNIT/1 ML 3ML VIAL SQ SCH ×4 (07:30→21:00)
[2019-03-04] MEDS: CEFEPIME 2 GM/NS 0.9% 100 ML 100 ML IV SCH ×2 (09:00→21:00)
[2019-03-04] MEDS: METOPROLOL TARTRATE 25 MG TAB PO SCH ×2 (09:04→17:31)
[2019-03-04] MEDS: BUMETANIDE 1 MG TAB PO SCH ×2 (09:04→17:31)
[2019-03-04] MEDS: NYSTATIN 15 GM POWDER UD BTL TOP SCH (09:04)
[2019-03-04] MEDS: NPH, HUMAN INSULIN ISOPHANE 100 UNIT/1 ML 3ML VIAL SQ SCH ×2 (09:05→21:00)
[2019-03-04] MEDS: BALSAM PERU/CASTOR OIL 5 GM OINT...G. TP SCH (10:09)
--- NOTE | 2019-03-04 10:33 | NUR ---
RECEIVED MESSAGE FROM SON HE WENT TO FACILITY AND IT IS ACCEPTABLE, WENT TO ROOM AND SPOKE WITH PT GOT CHOICE FORM SIGNED FOR [facility] FAXED CLINICALS [phone]. COMPLETED RTF AND LEFT AT NURSES STATION FOR WHEN RECEIVE AUTH AND ROOM.
[2019-03-04] MEDS ORDERED: SODIUM CHLORIDE 0.9% 250ML 250 ML IV ONE (11:30)
--- NOTE | 2019-03-04 11:43 | NUR ---
MD IN TO SEE PATIENT, NOTIFIED OF ABNORMAL LAB RESULT. NEW ORDERS RECEIVED.
--- NOTE | 2019-03-04 14:16 | Progress Note ---
DATE: 03/04/2019 Medicine Progress Note SUBJECTIVE: The patient is doing well today with no complaints. Bumex has helped tremendously with increased urine output. He is a little anemic today, he will get 1 unit of packed RBCs. Pending [facility]iary facility placement. PHYSICAL EXAMINATION: VITAL SIGNS: Temperature 96.2, pulse 74, respiratory rate is 20, blood pressure 126/58 pulse ox is 91% on 2 L nasal cannula. GENERAL: Not in acute distress. Alert and oriented x3. Cooperative on examination. HEENT: Head is normocephalic and atraumatic. Eyes; pupils are equal, round, and reactive to light bilaterally. Extraocular movements are intact bilaterally. Throat, no evidence of erythema or exudates in the posterior pharynx. Has poor dentition. NECK: Supple. Good range of motion. PULMONARY: Clear to auscultation bilaterally. No wheezing, no rales, no rhonchi, no crackles appreciated. CARDIOVASCULAR: Positive S1, S2. No murmurs, rubs, or gallops appreciated. ABDOMEN: Soft, nondistended, and nontender to palpation. Bowel sounds present. MUSCULOSKELETAL: Strength is 5/5 throughout. No evidence of any muscle deficits on examination. No weakness appreciated. NEUROLOGICAL: Cranial nerves 2 through 12 grossly intact. No evidence of any neurological deficits on exam. SKIN: Intact. Warm to touch. Good cap refill. PSYCHIATRIC: Normal affect and mood. EXTREMITIES: No edema. Good range of motion throughout. LABORATORY DATA: Lab findings show white count 6.5, hemoglobin 7.2, hematocrit is 24 platelets of 209. Chemistries reviewed and normal. IMPRESSION: 1. Right thigh hemorrhagic cyst with bleeding, now improved. 2. Type 2 diabetes. 3. Morbid obesity. 4. Lower extremity lymphedema with lower extremity wounds with local wound care. 5. Hypertension. PLAN: Hemoglobin today is 7.2, we will type and screen and transfuse 1 unit of packed RBCs. Continue with Bumex for diuresis. Get a.m. labs. Son has finally picked for penitentiary facility placement and once accepted we will likely discharge soon. Continue daily wound care. MD JENNYFER Thakkar/MODL /[id number]
--- NOTE | 2019-03-04 15:00 | NUR ---
BLOOD TRANSFUSION STARTED, STAYED WITH PATIENT FOR THE FIRST 15 MINUTES, NO ADVERSE REACTION NOTED. WILL CLOSELY MONITOR.
--- NOTE | 2019-03-04 17:45 | NUR ---
BLOOD TRANSFUSION COMPLETED, NO ADVERSE REACTION NOTED. IV LASIX GIVEN ORDERED. ALL PERSONAL ITEMS CLOSE TO PATIENT, CALL LIGHT AT REACH.
--- NOTE | 2019-03-04 20:11 | NUR ---
RECEIVED PT IS IN BED AOX3 .DENIES PAIN. RESPIRATIONS ARE EVEN AND UNLABORED.BOTH LOWER EXT RED AND SWOLLEN WRAPPED WITH JAYLON WRAP .PT HAS PURE WICK.RT BUTTOCK WITH LESION .CALL LIGHT WITH IN REACH .CONTINUE TO MONITOR
[2019-03-05] VITALS (8 sets, daily range): BP systolic 138–162; BP diastolic 63–70
[2019-03-05] MEDS: ALBUTEROL/IPRATROPIUM 3 ML NEB NEB PRN ×2 (06:47→19:45)
[2019-03-05] MEDS: ALBUTEROL SULFATE HFA 8GM INHALATION AEROSOL INH SCH ×2 (06:47→19:45)
[2019-03-05 07:08] LABS: BASOPHILS # (AUTO) 0.1 (0.0-0.1); BASOPHILS % 0.6 % (0.0-1.0); EOSINOPHILS # (AUTO) 0.8 (0.0-0.4); EOSINOPHILS % 10.6 % (0.0-6.0); HEMATOCRIT 26.1 % (38.2-49.6); HEMOGLOBIN 8.1 g/dL (14.0-18.0); LYMPHOCYTES # (AUTO) 0.9 (1.0-3.2); LYMPHOCYTES % 11.2 % (18.0-39.1); MEAN CORPUSCULAR HEMOGLOBIN 28.4 pg (28-32); MEAN CORPUSCULAR VOLUME 91.6 fL (81-99); MONOCYTES % 12.6 % (4.4-11.3); PLATELET COUNT 221 x10e3/uL (140-360); RED BLOOD COUNT 2.85 x10e6/uL (4.3-5.7)
--- NOTE | 2019-03-05 07:10 | NUR ---
PT CALLING FOR HELP Q 30 MIN .DURING THE NIGHT .IV OUT PUT NEW IV AT THE LEFT UPPER ARM .CALL LIGHT WITH IN REACH .BEDSIDE GIVEN TO THE ONCOMING NURSE
--- NOTE | 2019-03-05 07:20 | NUR ---
PATIENT IN BED RESTING WITH NO RESPIRATORY DISTRESS. C/O GENERALIZED PAIN, PAIN MEDICATION ADMINISTERED ORDERED. ALL PERSONAL ITEMS CLOSE TO PATIENT, CALL LIGHT AT REACH.
[2019-03-05] MEDS: INSULIN LISPRO 100 UNIT/1 ML 3ML VIAL SQ SCH ×4 (07:30→23:41)
[2019-03-05 07:38] LABS: ANION GAP 9.9 mmol/L (8-16); BLOOD UREA NITROGEN 23 mg/dL (7-26); BUN/CREATININE RATIO 23 (6-25); CALCIUM 9.1 mg/dL (8.4-10.2); CHLORIDE 88 mmol/L (98-107); CREATININE, SERUM 0.98 mg/dL (0.72-1.25); EST GLOMERULAR FILTRATION RATE > 60 ML/MIN (60-); GLUCOSE 140 mg/dL (74-118); POTASSIUM 3.9 mmol/L (3.5-5.1); SODIUM 136 mmol/L (136-145)
[2019-03-05 07:40] LABS: CARBON DIOXIDE 42 mmol/L (22-29)
--- NOTE | 2019-03-05 08:05 | NUR ---
SPOKE WITH MD REGARDING ABNORMAL LAB, MD WILL BE IN TO SEE PATIENT. PATIENT IN BED WITH NO S/S OF DISTRESS. CALL LIGHT AT REACH.
[2019-03-05] MEDS: BUMETANIDE 1 MG TAB PO SCH ×2 (09:37→17:12)
[2019-03-05] MEDS: NYSTATIN 15 GM POWDER UD BTL TOP SCH (09:37)
[2019-03-05] MEDS: BALSAM PERU/CASTOR OIL 5 GM OINT...G. TP SCH (09:37)
[2019-03-05] MEDS: METOPROLOL TARTRATE 25 MG TAB PO SCH ×2 (09:37→17:12)
[2019-03-05] MEDS: NPH, HUMAN INSULIN ISOPHANE 100 UNIT/1 ML 3ML VIAL SQ SCH ×2 (09:39→21:00)
[2019-03-05] MEDS: CEFEPIME 2 GM/NS 0.9% 100 ML 100 ML IV SCH ×2 (09:45→21:00)
--- NOTE | 2019-03-05 11:07 | NUR ---
PATIENT ASSISTED WITH ADLS, REPOSITIONED IN BED. CALL LIGHT AT REACH.
--- NOTE | 2019-03-05 15:46 | NUR ---
PATIENT ASSISTED WITH DIAPER CHANGE. HAD A LARGE BM. REPOSITIONED IN BED, CALL LIGHT AT REACH.
[2019-03-05] MEDS ORDERED: BUMETANIDE1 MG PO (16:00)
[2019-03-05] MEDS: ACETAZOLAMIDE SODIUM 500 MG/VIAL IV SCH (17:30)
--- NOTE | 2019-03-05 17:57 | NUR ---
Follow-up Note RD Recommendation for Physician: -Continue diet as ordered -Pt is not interested in diet education. Plan of Care: RD following, monitoring for adequacy and tolerance Nutrition reason for involvement: Follow up Primary Diagnose(s): Anemia, cellulitis, varicose vein of leg Ht:71 in Wt:411.44lbs BMI:57.4 kg/m2 IBW:172lbs RD Assessment: 03/05 Visited pt in the room. Pt reported good appetite with 100% recorded meal intake. No GI complains reported. LBM 03/04. Current diet is adequate and appropriate. RD signed off. Please consult as needed. (02/28/2019) Initial encounter with patient. Pt has done well losing wt with lifestyle changes and exercise. Pt states that he has cut fat, sugar and portion sizes down. Pt denies any difficulty chewing or swallowing. Pt denies N,V,D. Current Diet: 1800ADA Malnutrition Evaluation 02/28/2019 The patient does not meet criteria for a specified degree of malnutrition at this time. Will re-evaluate at follow-up as appropriate. Diet Education Needs Assessment: Diet education not indicated. Pt is familiar with a low sodium diabetes diet Diet Adequacy: Meeting calorie needs, Meeting protein needs, Meeting fluid needs Tolerance: Tolerating PO Nutrition Care Level: low Signed by Day Padron, MS, RD, LD
--- NOTE | 2019-03-05 20:23 | NUR ---
RECEIVED PT IN BED .NO ACUTE DISTRESS NOTED .CALL LIGHT WITH IN REACH .PURWICK IN PLACE
--- NOTE | 2019-03-05 20:30 | Progress Note ---
DATE: 03/05/2019 Medicine Progress Note SUBJECTIVE: We are still awaiting [facility] facility placement. The patient is otherwise doing well with no other issues at this time. OBJECTIVE: VITAL SIGNS: Temperature is 97.6, pulse 70, respiratory rate is 16, blood pressure nasal cannula. GENERAL: Not in acute distress. Alert and oriented x3. Cooperative on examination. HEENT: Head is normocephalic and atraumatic. Eyes; pupils are equal, round, and reactive to light bilaterally. Extraocular movements are intact bilaterally. Throat, no evidence of erythema or exudates in the posterior pharynx. Has poor dentition. NECK: Supple. Good range of motion. PULMONARY: Clear to auscultation bilaterally. No wheezing, no rales, no rhonchi, no crackles appreciated. CARDIOVASCULAR: Positive S1, S2. No murmurs, rubs, or gallops appreciated. ABDOMEN: Soft, nondistended, and nontender to palpation. Bowel sounds present. MUSCULOSKELETAL: Strength is 5/5 throughout. No evidence of any muscle deficits on examination. No weakness appreciated. NEUROLOGICAL: Cranial nerves II through XII grossly intact. No evidence of any neurological deficits on exam. SKIN: Intact. Warm to touch. Good cap refill. PSYCHIATRIC: Normal affect and mood. EXTREMITIES: He has significant lower extremity edema. LAB FINDINGS: Show white count 7.7, hemoglobin 8.1, hematocrit 26.1, and platelets of 221. Coagulations normal. Chemistry; sodium is 136, potassium is 3.9, chloride 88, bicarbonate is 42, anion gap 9.9, BUN 23, creatinine is 0.98, glucose is 140, calcium is 9.1. Urinalysis, none. MICROBIOLOGY: All negative. IMAGING STUDIES: None. IMPRESSION: 1. Right thigh hemorrhagic cyst with bleeding, status post blood transfusion with much improved hemoglobin. 2. Type 2 diabetes. 3. Morbid obesity. 4. Lower extremity lymphedema with lower extremity wounds with prior local wound care. 5. Hypertension. 6. Lower extremity edema. 7. Metabolic alkalosis secondary to contraction alkalosis and chronic respiratory failure. PLAN: At this time, hemoglobin is greater than 8 today. He is doing much better. Continue with diuresis. His bicarb is elevated. We will give him Diamox 250 mg IV t.i.d. x3 doses. We were waiting for usp facility placement. Continue same plan of care. Discussed plan of care with nursing staff. MD JENNYFER Thakkar/ZAHRAA /[id number]
[2019-03-06] VITALS (8 sets, daily range): BP systolic 112–139; BP diastolic 51–63
[2019-03-06] MEDS: ACETAZOLAMIDE SODIUM 500 MG/VIAL IV SCH ×2 (00:12→07:12)
--- NOTE | 2019-03-06 06:32 | NUR ---
PT DENIES PAIN .NO ACUTE DISTRESS NOTED .CALL LIGHT WITH IN REACH CONTINUE TO MONITOR
[2019-03-06] MEDS: ALBUTEROL SULFATE HFA 8GM INHALATION AEROSOL INH SCH ×2 (07:00→19:00)
[2019-03-06] MEDS: ALBUTEROL/IPRATROPIUM 3 ML NEB NEB PRN ×2 (07:00→14:00)
--- NOTE | 2019-03-06 07:17 | NUR ---
REPORT GIVEN TO THE ONCOMING NURSE
[2019-03-06 07:24] LABS: BASOPHILS # (AUTO) 0.1 (0.0-0.1); BASOPHILS % 0.7 % (0.0-1.0); EOSINOPHILS % 10.8 % (0.0-6.0); HEMATOCRIT 28.7 % (38.2-49.6); HEMOGLOBIN 8.8 g/dL (14.0-18.0); LYMPHOCYTES # (AUTO) 1.1 (1.0-3.2); LYMPHOCYTES % 11.7 % (18.0-39.1); MEAN CORPUSCULAR HEMOGLOBIN 28.3 pg (28-32); MEAN CORPUSCULAR HGB CONC 30.7 g/dL (31-35); MEAN CORPUSCULAR VOLUME 92.3 fL (81-99); MONOCYTES # (AUTO) 1.3 (0.2-0.8); MONOCYTES % 13.8 % (4.4-11.3); NEUTROPHILS # (AUTO) 5.8 (2.1-6.9); NEUTROPHILS % 61.8 % (38.7-80.0); PLATELET COUNT 250 x10e3/uL (140-360); RED BLOOD COUNT 3.11 x10e6/uL (4.3-5.7)
[2019-03-06 07:42] LABS: ANION GAP 12.1 mmol/L (8-16); BLOOD UREA NITROGEN 25 mg/dL (7-26); BUN/CREATININE RATIO 23 (6-25); CALCIUM 9.4 mg/dL (8.4-10.2); CHLORIDE 89 mmol/L (98-107); CREATININE, SERUM 1.07 mg/dL (0.72-1.25); EST GLOMERULAR FILTRATION RATE > 60 ML/MIN (60-); GLUCOSE 175 mg/dL (74-118); POTASSIUM 4.1 mmol/L (3.5-5.1); SODIUM 139 mmol/L (136-145)
[2019-03-06] MEDS: INSULIN LISPRO 100 UNIT/1 ML 3ML VIAL SQ SCH ×4 (07:50→22:00)
[2019-03-06 07:59] LABS: CARBON DIOXIDE 42 mmol/L (22-29)
[2019-03-06] MEDS: NPH, HUMAN INSULIN ISOPHANE 100 UNIT/1 ML 3ML VIAL SQ SCH ×2 (08:28→22:00)
[2019-03-06] MEDS: CEFEPIME 2 GM/NS 0.9% 100 ML 100 ML IV SCH ×2 (08:52→21:00)
[2019-03-06] MEDS: NYSTATIN 15 GM POWDER UD BTL TOP SCH (08:52)
[2019-03-06] MEDS: BUMETANIDE 1 MG TAB PO SCH ×2 (08:52→17:06)
[2019-03-06] MEDS: METOPROLOL TARTRATE 25 MG TAB PO SCH ×2 (08:52→17:06)
--- NOTE | 2019-03-06 09:25 | NUR ---
Co2 [address] Oviedo, no new orders, patient not in any distress, call light in reach, continue monitoring
--- NOTE | 2019-03-06 10:49 | NUR ---
CM TO BEDSIDE TO DISCUSS IMM AND PATIENT'S RIGHTS IN DECISION MAKING REGARDING CARE. CM ANSWERED QUESTIONS. PATIENT VERBALIZED UNDERSTANDING OF DISCUSSION. SIGNATURE OBTAINED ON IMM - COPY TO CHART AND COPY LEFT AT THE BEDSIDE.
[2019-03-06] MEDS: BALSAM PERU/CASTOR OIL 5 GM OINT...G. TP SCH (11:19)
--- NOTE | 2019-03-06 14:28 | Progress Note ---
DATE: 03/06/2019 Medicine Progress Note SUBJECTIVE: The patient is doing well today with no other complaints. He was in the process of being transferred to intermediate facility, but the facility is currently does not have any power and the patient will likely be here a little longer. OBJECTIVE: VITAL SIGNS: Temperature 97, pulse 74, respiratory rate is 20, oxygen saturation 96% on 2 L nasal cannula. GENERAL: Not in acute distress. Alert and oriented x3. Cooperative on examination. HEENT: Head is normocephalic and atraumatic. Eyes; pupils are equal, round, and reactive to light bilaterally. Extraocular movements are intact bilaterally. Throat, no evidence of erythema or exudates in the posterior pharynx. Has poor dentition. NECK: Supple. Good range of motion. PULMONARY: Clear to auscultation bilaterally. No wheezing, no rales, no rhonchi, no crackles appreciated. CARDIOVASCULAR: Positive S1, S2. No murmurs, rubs, or gallops appreciated. ABDOMEN: Soft, nondistended, and nontender to palpation. Bowel sounds present. MUSCULOSKELETAL: Strength is 5/5 throughout. No evidence of any muscle deficits on examination. No weakness appreciated. NEUROLOGICAL: Cranial nerves II through XII grossly intact. No evidence of any neurological deficits on exam. SKIN: Intact. Warm to touch. Good cap refill. PSYCHIATRIC: Normal affect and mood. EXTREMITIES: No edema. Good range of motion throughout. LAB FINDINGS: Show white count 9.3, hemoglobin 8.8, hematocrit is 28, and platelets of 250. Chemistry; sodium 139, potassium 4.1, chloride 89, bicarb 43, anion gap of 12, BUN is 25, creatinine 1.07, glucose 135, and calcium 9.4. Urine culture negative. Blood cultures negative. IMAGING STUDIES: No new chest x-ray. IMPRESSION: 1. Right thigh hemorrhagic cyst with bleeding, status post blood transfusion, much improved hemoglobin. 2. Type 2 diabetes. 3. Morbid obesity. 4. Lower extremity lymphedema with lower extremity wounds with prior local wound care. 5. Hypertension. 6. Lower extremity edema. 7. Metabolic alkalosis secondary to contraction alkalosis and chronic respiratory failure. PLAN: At this time, hemoglobin is stable. We will continue with Diamox. Waiting for intermediate facility placement. The facility that he was supposed to go to ran out of power or power is out and he will be here until the facility is able to have electricity before he can be discharged. MD JENNYFER Thakkar/ZAHRAA /[id number]
--- NOTE | 2019-03-06 17:50 | NUR ---
PATIENT RESTING IN BED, PT WORKED WITH HIM, NOT IN ANY DISTRESS, ANALIA ANY PAIN THIS TIME.
--- NOTE | 2019-03-06 19:15 | NUR ---
Completed bedside rounds with morning nurse. Pt alert and orient to name. Lying in bed HOB 75 degrees. Pt c/o 10/10 back and legs pain. Assisted to change mattress setting to help reposition in bed. Purewick in place. Call cardenas within reach. Bed low and locked. Will continue to monitor.
[2019-03-06] MEDS: HYDROCODONE/APAP 5MG-325MG TAB PO PRN (20:05)
[2019-03-07] VITALS: BP 135/60
[2019-03-07] MEDS: ALBUTEROL/IPRATROPIUM 3 ML NEB NEB PRN ×3 (02:12→13:51)
[2019-03-07] MEDS: HYDROCODONE/APAP 5MG-325MG TAB PO PRN ×2 (02:20→10:39)
[2019-03-07 04:00] VITALS: BP 125/60
--- NOTE | 2019-03-07 06:43 | NUR ---
Pt alert and orient to name. Lying in bed watching TV. Denies pain at this time. Call cardenas within reach.
[2019-03-07 06:49] LABS: ANION GAP 10.6 mmol/L (8-16); BLOOD UREA NITROGEN 27 mg/dL (7-26); BUN/CREATININE RATIO 25 (6-25); CALCIUM 9.2 mg/dL (8.4-10.2); CHLORIDE 91 mmol/L (98-107); CREATININE, SERUM 1.06 mg/dL (0.72-1.25); EST GLOMERULAR FILTRATION RATE > 60 ML/MIN (60-); GLUCOSE 75 mg/dL (74-118); POTASSIUM 3.6 mmol/L (3.5-5.1); SODIUM 140 mmol/L (136-145)
[2019-03-07 06:54] LABS: CARBON DIOXIDE 42 mmol/L (22-29)
[2019-03-07] MEDS: INSULIN LISPRO 100 UNIT/1 ML 3ML VIAL SQ SCH ×2 (07:30→12:12)
[2019-03-07 07:42] VITALS: BP 145/63
[2019-03-07] MEDS: CEFEPIME 2 GM/NS 0.9% 100 ML 100 ML IV SCH (09:30)
[2019-03-07] MEDS: METOPROLOL TARTRATE 25 MG TAB PO SCH (09:30)
[2019-03-07] MEDS: BUMETANIDE 1 MG TAB PO SCH (09:30)
[2019-03-07] MEDS: NPH, HUMAN INSULIN ISOPHANE 100 UNIT/1 ML 3ML VIAL SQ SCH (09:30)
--- NOTE | 2019-03-07 10:32 | NUR ---
Called and spoke with Jade at [facility] to get an update on referral status. She states she does not have any information and is unable to provide CM with a phone number for administration. CM called and spoke with [facility]'s liaison Melba. Left a with callback number.
[2019-03-07] MEDS: BALSAM PERU/CASTOR OIL 5 GM OINT...G. TP SCH (10:38)
[2019-03-07] MEDS: NYSTATIN 15 GM POWDER UD BTL TOP SCH (10:38)
[2019-03-07 11:59] VITALS: BP 151/66
--- NOTE | 2019-03-07 12:28 | NUR ---
Received callback from Melba from [facility] with [id number] [place] [id number] Blake to attend completed RTF with pt's clinical packet at nurses station. NOELLE Damian was notified of bed assignment.
--- NOTE | 2019-03-07 12:28 | NUR ---
Report called to NOELLE Mays at [facility] for transfer.
[2019-03-07] MEDS ORDERED: ACETAZOLAMIDE SODIUM 500 MG/VIAL IV SCH (14:00)
--- NOTE | 2019-03-07 14:42 | Progress Note ---
DATE: 03/07/2019 Medicine Progress Note SUBJECTIVE: The patient is awaiting for [facility] facility. No overnight events. PHYSICAL EXAMINATION: VITAL SIGNS: Temperature is 96.3, pulse 65, respiratory rate is 20, blood pressure 145/63, pulse ox 98% on 3 L nasal cannula. GENERAL: Not in acute distress. Alert and oriented x3. Cooperative on examination. HEENT: Head is normocephalic and atraumatic. Eyes; pupils are equal, round, and reactive to light bilaterally. Extraocular movements are intact bilaterally. Throat, no evidence of erythema or exudates in the posterior pharynx. Has poor dentition. NECK: Supple. Good range of motion. PULMONARY: Clear to auscultation bilaterally. No wheezing, no rales, no rhonchi, no crackles appreciated. CARDIOVASCULAR: Positive S1, S2. No murmurs, rubs, or gallops appreciated. ABDOMEN: Soft, nondistended, and nontender to palpation. Bowel sounds present. MUSCULOSKELETAL: Strength is 5/5 throughout. No evidence of any muscle deficits on examination. No weakness appreciated. NEUROLOGICAL: Cranial nerves II through XII grossly intact. No evidence of any neurological deficits on exam. SKIN: Intact. Warm to touch. Good cap refill. PSYCHIATRIC: Normal affect and mood. EXTREMITIES: No edema. Good range of motion throughout. LABORATORY FINDINGS: Show white count 9.3, hemoglobin 8.8, hematocrit is 28, platelets of 250. Chemistry; sodium , potassium 3.6, chloride 91, bicarb 42, anion gap of 10, BUN is 27, creatinine is 1, calcium 9.2. IMPRESSION: 1. Right thigh hemorrhagic cyst with bleeding, status post blood transfusion with improved hemoglobin. 2. Type 2 diabetes. 3. Morbid obesity. 4. Lower extremity lymphedema with wounds in the lower extremities related to his lymphedema. 5. Hypertension. 6. Lower extremity edema. 7. Metabolic alkalosis secondary to contraction alkalosis and chronic respiratory failure. PLAN: At this time, labs are stable. I will give Diamox for his elevated bicarbonate level. Still awaiting for [facility]dc facility placement. He has been placed, but there was some situation with the facility. He may be able to be discharged to [facility] later today. We will follow with Case Management. MD JENNYFER Thakkar/ZAHRAA /[id number]
--- NOTE | 2019-03-07 15:23 | NUR ---
Pt discharged at this time to SNF in stable condition with all personal belongings.
--- NOTE | 2019-03-08 21:28 | Discharge Summary ---
FINAL DISCHARGE DIAGNOSES: 1. Right thigh hemorrhagic cyst with bleeding, status post blood transfusion given with much improved hemoglobin-no surgical intervention is needed. Discussed with General Surgery. 2. Type 2 diabetes. 3. Morbid obesity. 4. Lower extremity lymphedema with wounds in the lower extremities related to lymphedema, much improved. 5. Hypertension. 6. Lower extremity edema. 7. Metabolic alkalosis secondary to contraction alkalosis as well as prior respiratory failure from obesity hypoventilation syndrome. CONSULTANTS: We had General Surgery. PHYSICAL EXAMINATION: VITAL SIGNS: Temperature 97.0, pulse 72, respiratory rate is 20, blood pressure 151/66, pulse ox 95% on 3 L nasal cannula. LAB FINDINGS: Showed a white count of 9.3, hemoglobin 8.8, hematocrit 28.7, platelets of 250. Coagulation; PT 14, INR 1, PTT 38. Chemistry; sodium 140, potassium 3.3, chloride 91, bicarb 22, anion gap of 10, BUN is 27, creatinine is 1, glucose is 75, calcium is 9.2. LFTs were normal, magnesium 2, T-bilirubin is 1, troponins are negative. BNP 474. Albumin 2.8. Urinalysis negative. Microbiology; urine culture negative. Blood culture is negative. IMAGING STUDIES: Chest x-ray, mild pulmonary interstitial edema. HOSPITAL COURSE: This is a 68-year-old male, morbidly obese with multiple comorbidities, comes into the ED with a right thigh hemorrhagic cyst that has been bleeding since the night before admission to the hospital. The patient reports he has significant amount of bleeding at home when this occurred. He is a morbidly obese individual. He has difficulty looking at the wound and he had difficulty packing the wound, the actual hemorrhagic cyst. While here, the patient's hemoglobin was maintained on admission was 8.1 downtrended to 7.2 requiring blood transfusion to a hemoglobin of 8.8 on discharge. General Surgery was consulted, recommended no intervention at this time. Recommended just pressure dressings, which he did improve and he had no more evidence of any bleeding prior to being discharged home for several days. On discharge, the patient was doing well back to normal baseline with no other complaints. He also had some local wound care to his lower extremity lymphedema per the Wound Care team. He was on diuretics for his underlying edema. He did have some metabolic alkalosis likely due to be contraction alkalosis as well as chronic respiratory failure due to his underlying obesity hypoventilation syndrome and likely obstructive sleep apnea. His blood pressure and diabetes are well managed and controlled. The patient was doing well and was cleared for discharge by General Surgery. The patient was discharged to [facility] facility for further rehabilitation. On the day of discharge, vital signs stable, labs reviewed and stable. The patient seen, evaluated, examined thoroughly on the day of discharge. No other complaints. The patient verbalized understanding and agreed to plan of care. A followup appointment as an outpatient with the primary care physician in 1 week and General Surgery as needed. MEDICATIONS: See med reconciliation form. DISPOSITION: residential physician. CONDITION: Stable. DIET: Heart healthy. In the event of any worsening symptoms, the patient was advised to come back to the ED for further evaluation. Discharge summary took greater than 35 minutes. MD JENNYFER Thakkar/NOMANL /[id number]
== END 2019-03-07 15:35 | DRG 812 ==
LOC: ER 10:19 → ERHOLD 14:59 → MED/SURG3 16:28
PROVIDERS: ADMIT Internal Medicine; ATTEND Internal Medicine
PROC: 30233N1 Transfusion of Nonautologous Red Blood Cells into Peripheral Vein, Percutaneous Approach (ICD-10-PCS; principal; 2019-02-27)
DX: D62 Acute posthemorrhagic anemia (principal); L03.116 Cellulitis of left lower limb; E87.3 Alkalosis; E66.2 Morbid (severe) obesity with alveolar hypoventilation; Z68.43 Body mass index [BMI] 50.0-59.9, adult; J96.10 Chronic respiratory failure, unspecified whether with hypoxia or hypercapnia; R23.3 Spontaneous ecchymoses; L72.8 Other follicular cysts of the skin and subcutaneous tissue; S71.132A Puncture wound without foreign body, left thigh, initial encounter; L72.0 Epidermal cyst; I89.0 Lymphedema, not elsewhere classified; I10 Essential (primary) hypertension; E11.9 Type 2 diabetes mellitus without complications; J44.9 Chronic obstructive pulmonary disease, unspecified
CPT/HCPCS: 36415; 71045; 80048; 80053; 80202; 81001; 82550; 82553; 82948; 83605; 83735; 83880; 84484; 85007; 85025; 85027; 85610; 85730; 86850; 86900; 86920; 87040; 87086; 94640; 97139; 99284; J1940; J3370; J7030; J7050; P9016

== ENCOUNTER 2019-12-15 12:04 | Emergency (ER) | payer MEDICARE, OTHER ==
[~2019-12-15] VITALS: Ht 180.3 cm; Wt 172.4 kg
[~2019-12-15 12:04] MED LIST changes: +ALBUTERAL IH; +BUMETANIDE1 MG PO; +FUROSEMIDE40 MG PO; +GLIPIZIDE5 MG PO; +METFORMIN HCL500 MG PO; +NAPROXEN250 MG PO; +PIOGLITAZONE45 MG PO
[2019-12-15] MEDS ORDERED: AZITHROMYCIN 500MG/NS 250 ML 250 ML IV STA (12:21)
[2019-12-15] MEDS ORDERED: IPRATROPIUM BROMIDE 0.02% 2.5 ML NEB NEB STA (12:21)
[2019-12-15] MEDS ORDERED: SODIUM CHLORIDE 0.9% 500ML 500 ML IV STA (12:21)
[2019-12-15] MEDS ORDERED: ALBUTEROL SULF 0.083% NEB SOLN 3 ML NEB NEB STA (12:21)
--- NOTE | 2019-12-15 12:31 | NUR ---
blood collected and sent to lab
[2019-12-15 12:38] LABS: BASOPHILS % 0.2 % (0.0-1.0); EOSINOPHILS # (AUTO) 0.1 (0.0-0.4); EOSINOPHILS % 0.8 % (0.0-6.0); HEMATOCRIT 38.4 % (38.2-49.6); LYMPHOCYTES # (AUTO) 0.6 (1.0-3.2); LYMPHOCYTES % 3.5 % (18.0-39.1); MEAN CORPUSCULAR HEMOGLOBIN 30.2 pg (28-32); MEAN CORPUSCULAR HGB CONC 31.3 g/dL (31-35); MEAN CORPUSCULAR VOLUME 96.5 fL (81-99); MONOCYTES # (AUTO) 1.7 (0.2-0.8); MONOCYTES % 9.9 % (4.4-11.3); NEUTROPHILS # (AUTO) 14.2 (2.1-6.9); NEUTROPHILS % 84.9 % (38.7-80.0); PLATELET COUNT 200 x10e3/uL (140-360); RED BLOOD COUNT 3.98 x10e6/uL (4.3-5.7); RED CELL DISTRIBUTION WIDTH 16.9 % (11.7-14.4)
--- NOTE | 2019-12-15 13:30 | NUR ---
ABG DONE AND RETANING CO2 AT 80; BIPAP ORDERED, 10/02 @ 70% RATE 14; NEBS WITH BIPAP.
--- NOTE | 2019-12-15 13:36 | Diagnostic Imaging Report ---
TECHNIQUE: Frontal view of the chest. INDICATION: 69-year-old man with weakness. COMPARISON: Chest radiograph 02/27/2019. FINDINGS: LINES/TUBES: None. LUNGS: Persistent streaky airspace opacities in the right lower lung zone. PLEURA: No pneumothorax or significant pleural effusion. HEART AND MEDIASTINUM: Unchanged borderline prominent cardiac silhouette. SOFT TISSUES AND BONES: Unremarkable. IMPRESSION: Persistent airspace opacities in the right lower lung zone, likely atelectasis. Superimposed pneumonia cannot be excluded. Signed by: Nataly Hall MD on 12/15/2019 1:33 PM
[2019-12-15 13:49] LABS: ABG PH 7.24 (7.31-7.41)
[2019-12-15 13:50] LABS: ABG HCO3 37 mmol/L (23-28); ABG PCO2 86 mmHg (41-51); ABG PO2 102 mmHg (80-105)
--- NOTE | 2019-12-15 14:09 | NUR ---
ATTEMPT REPORT, NURSE BUSY AND WILL CALL US BACK IN TEN PER TRANSFER CENTER.
[2019-12-15 14:12] LABS: ALBUMIN 3.2 g/dL (3.5-5.0); ALBUMIN/GLOBULIN RATIO 0.7 (0.8-2.0); ANION GAP 17.9 mmol/L (8-16); CALCIUM 9.6 mg/dL (8.4-10.2); CREATININE, SERUM 2.14 mg/dL (0.72-1.25); POTASSIUM 3.9 mmol/L (3.5-5.1)
[2019-12-15 14:19] LABS: CREATINE KINASE MB 1.9 ng/mL (0-5.0)
[2019-12-15 14:27] LABS: B-TYPE NATRIURETIC PEPTIDE2 759.8 pg/mL (0-100)
[2019-12-15] MEDS ORDERED: ALBUTEROL/IPRATROPIUM 3 ML NEB NEB ONE (14:30)
[2019-12-15 14:55] LABS: ABG PCO2 87 mmHg (41-51); ABG PH 7.22 (7.31-7.41)
[2019-12-15 14:56] LABS: ABG HCO3 36 mmol/L (23-28); ABG PO2 149 mmHg (80-105)
--- NOTE | 2019-12-15 16:21 | NUR ---
[facility] in with patient for transport.
== END 2019-12-15 15:00 | disposition short-term general hospital (02) ==
LOC: ER 12:04
DX: R06.00 Dyspnea, unspecified (principal); J15.9 Unspecified bacterial pneumonia; R53.1 Weakness; N18.3 Chronic kidney disease, stage 3 (moderate); J44.9 Chronic obstructive pulmonary disease, unspecified; E11.9 Type 2 diabetes mellitus without complications; I10 Essential (primary) hypertension; Z85.828 Personal history of other malignant neoplasm of skin
CPT/HCPCS: 36415; 36600; 71045; 80053; 82550; 82553; 82805; 83605; 83880; 84484; 85025; 87040; 94640; 94660; 99285; J0456; J7040